=== PATIENT | female | born 1985 | race Caucasian/White ===

== ENCOUNTER 2020-10-31 17:53 | Inpatient (IN) | payer BC ==
[~2020-10-31] VITALS: Ht 162.6 cm; Wt 76.2 kg
[2020-10-31] MEDS ORDERED: OXYTOCIN-LR 20 UNITS/1000 ML 1,000 ML IV SCH (18:30)
[2020-10-31 18:40] VITALS: BP 114/76
[2020-10-31 18:59] LABS: APPEARANCE,URINE Clear (CLEAR); BILIRUBIN,URINE Negative (NEGATIVE); COLOR,URINE Yellow (YELLOW); GLUCOSE, URINE (UA) Negative (NEGATIVE); KETONES,URINE 15 mg/dL (NEGATIVE); LEUKOCYTE ESTERASE ,URINE Trace (NEGATIVE); NITRATE,URINE Negative (NEGATIVE); OCCULT BLOOD,URINE Negative (NEGATIVE); PH,URINE 5.5 (5.0-8.0); PROTEIN,URINE Negative (NEGATIVE)
[2020-10-31 19:00] LABS: HEMATOCRIT 36.3 % (36-48); MEAN CORPUSCULAR HEMOGLOBIN 32.7 pg (27.0-33.0); MEAN CORPUSCULAR HGB CONC 35.3 g/dL (32.0-36.0); MEAN CORPUSCULAR VOLUME 92.8 fL (79-99); RED BLOOD CELL COUNT(AUTO) 3.91 MIL/uL (4.00-5.50); RED CELL DISTRIBUTION WIDTH 12.7 % (11.0-15.5); WHITE BLOOD COUNT (AUTO) 13.9 K/uL (4.8-10.8)
[2020-10-31 19:08] LABS: BACTERIA,URINE Few /HPF (None Seen); MUCUS,URINE Many LPF (None Seen); SQUAMOUS EPITHELIAL CELL,UR Moderate /HPF (0-2)
[2020-10-31] MEDS: LACTATED RINGERS 1000ML 1,000 ML IV PRN (19:22)
[2020-10-31] MEDS ORDERED: DINOPROSTONE 10 MG VAGINAL SUPP VG SCH (19:50)
[2020-11-01] MEDS: LACTATED RINGERS 1000ML 1,000 ML IV PRN (02:12)
[2020-11-01 08:24] VITALS: BP 105/68
[2020-11-01] MEDS ORDERED: OXYTOCIN-LR 20 UNITS/1000 ML 1,000 ML IV SCH (08:30)
[2020-11-01] MEDS ORDERED: EPHEDRINE SULFATE 50 MG/ML AMPULE IVP PRN (09:15)
[2020-11-01] MEDS ORDERED: NALOXONE HCL 0.4 MG/1 ML ML IV PRN (09:15)
[2020-11-01] MEDS ORDERED: ROPIVACAINE 0.2% 100ML VIAL 100 ML EP SCH (09:15)
[2020-11-01] MEDS ORDERED: LACTATED RINGERS 500 ML 500 ML IV PRN (09:15)
[2020-11-01] MEDS ORDERED: BENZOCAINE/LANOLIN/ALOE VERA 60 ML AEROSOL TP PRN (13:00)
[2020-11-01] MEDS ORDERED: ACETAMINOPHEN WITH CODEINE 1 TAB TAB PO PRN (13:00)
[2020-11-01] MEDS ORDERED: ACETAMINOPHEN 325 MG TAB PO PRN (13:00)
[2020-11-01] MEDS ORDERED: WITCH HAZEL 1 PAD TP PRN (13:00)
[2020-11-01] MEDS ORDERED: LANOLIN 30GM OINTMENT TP PRN (13:00)
[2020-11-01] MEDS ORDERED: DIPH,PERTUSS(ACELL),TET VAC/PF 0.5 ML VIAL IM PRN (13:00)
[2020-11-01] MEDS ORDERED: PREN1TAB80 PO (14:44)
[2020-11-01 14:45] VITALS: BP 104/63
[2020-11-01] MEDS: IBUPROFEN 600 MG TABLET PO PRN (18:04)
[2020-11-01 19:40] VITALS: BP 128/68
[2020-11-01] MEDS: DOCUSATE SODIUM 100 MG CAP PO SCH (20:48)
[2020-11-01 23:00] VITALS: BP 112/58
[2020-11-02 02:52] VITALS: BP 108/60
[2020-11-02 06:05] LABS: HEMATOCRIT 32.6 % (36-48); MEAN CORPUSCULAR HEMOGLOBIN 32.9 pg (27.0-33.0); MEAN CORPUSCULAR VOLUME 93.9 fL (79-99); RED BLOOD CELL COUNT(AUTO) 3.47 MIL/uL (4.00-5.50); RED CELL DISTRIBUTION WIDTH 12.9 % (11.0-15.5); WHITE BLOOD COUNT (AUTO) 13.9 K/uL (4.8-10.8)
[2020-11-02 07:22] LABS: HEPATITIS Bs ANTIGEN SCREEN P Negative (Negative)
[2020-11-02 07:35] VITALS: BP 102/68
[2020-11-02] MEDS: DOCUSATE SODIUM 100 MG CAP PO SCH (09:44)
[2020-11-02] MEDS: IBUPROFEN 600 MG TABLET PO PRN (09:45)
[2020-11-02 12:00] VITALS: BP 90/61
== END 2020-11-02 13:05 | disposition home or self-care (01) | DRG 807 ==
LOC: LDH 17:53 → WSH 11-01 14:15
PROVIDERS: ADMIT Obstetrics & Gynecology; ATTEND Obstetrics & Gynecology
PROC: 10E0XZZ Delivery of Products of Conception, External Approach (ICD-10-PCS; principal; 2020-11-01)
PROC: 0HQ9XZZ Repair Perineum Skin, External Approach (ICD-10-PCS; 2020-11-01)
PROC: 3E0R3BZ Introduction of Anesthetic Agent into Spinal Canal, Percutaneous Approach (ICD-10-PCS; 2020-11-01)
PROC: 00HU33Z Insertion of Infusion Device into Spinal Canal, Percutaneous Approach (ICD-10-PCS; 2020-11-01)
PROC: 10907ZC Drainage of Amniotic Fluid, Therapeutic from Products of Conception, Via Natural or Artificial Opening (ICD-10-PCS; 2020-11-01)
PROC: 3E033VJ Introduction of Other Hormone into Peripheral Vein, Percutaneous Approach (ICD-10-PCS; 2020-11-01)
PROC: 3E0P7VZ Introduction of Hormone into Female Reproductive, Via Natural or Artificial Opening (ICD-10-PCS; 2020-11-01)
PROC: 3E0234Z Introduction of Serum, Toxoid and Vaccine into Muscle, Percutaneous Approach (ICD-10-PCS; 2020-11-01)
PROC: 3E0234Z Introduction of Serum, Toxoid and Vaccine into Muscle, Percutaneous Approach (ICD-10-PCS; 2020-11-02)
DX: O70.0 First degree perineal laceration during delivery (principal); Z37.0 Single live birth; Z3A.39 39 weeks gestation of pregnancy; Z23 Encounter for immunization; Z67.11 Type A blood, Rh negative
CPT/HCPCS: 36415; 81001; 83033; 85027; 86592; 86850; 86900; 86901; 87340; G0378; J2590; J2791; J2795; J7120